=== PATIENT | male | born 1935 | race Caucasian/White ===

== ENCOUNTER 2019-06-17 15:40 | Observation (INO) | payer OTHER ==
[2019-06-17] MEDS ORDERED: Sodium Chloride 0.9% 1,000 ML IV ONE (15:43)
[2019-06-17 16:47] LABS: BLOOD UREA NITROGEN,BUN 29 mg/dL (7.0-18.0); CARBON DIOXIDE,CO2 28.9 mmol/L (21.0-32.0); CHLORIDE,CL 101 mmol/L (98-107); GLUCOSE RANDOM 153 mg/dL (74-106); POTASSIUM,K 4.3 mmol/L (3.5-5.1); SODIUM,NA 138 mmol/L (136-148)
--- NOTE | 2019-06-17 17:20 | EDM.PDOC ---
ED HPI GENERAL MEDICAL PROBLEM - General Chief Complaint: Gastrointestinal Problem Stated Complaint: SPOKE TO NURSE Time Seen by Provider: 06/17/19 15:44 Source of Information: Reports: Patient History Limitations: Reports: No Limitations - History of Present Illness INITIAL COMMENTS - FREE TEXT/NARRATIVE: HISTORY AND PHYSICAL: History of present illness: Patient is an 84-year-old male who presents to the emergency room with complaints of diarrhea x 1 month and episodic syncopal events. Patient reports over the past 1 month he has had diarrhea that is pretty constant. He describes this as typically his first stool will be hard and then the remaining bowel movements the rest of the day are soft which he is stating it is "diarrhea ". Concerned as sometimes his stool color is yellow. He also states he had a few previous episodes of syncope. Last syncopal event was on 06/15/2019, this was unwitnessed. He states he just remembers waking up on the ground and the dog laying right by his face. He does have an old healing bruise to his midsternal area. He does not recall any symptoms leading up to these syncopal events. 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 He sees Dr. Reddy at [facility] in [place]. Patient denies any fever, chills, headache, change in vision, syncope or near syncope. Denies any chest pain, back pain, shortness of breath or cough. Denies any abdominal pain, nausea, vomiting, diarrhea, constipation or dysuria. Has not noted any blood in urine or stool. Patient has been eating and drinking appropriately. Review of systems: As per history of present illness and below otherwise all systems reviewed and negative. Past medical history: As per history of present illness and as reviewed below otherwise noncontributory. Surgical history: As per history of present illness and as reviewed below otherwise noncontributory. Social history: See social history for further information Family history: As per history of present illness and as reviewed below otherwise noncontributory. Physical exam: General: Well-developed and well-nourished 84-year-old male. Alert and oriented. Nontoxic-appearing and in no acute distress. HEENT: Atraumatic, normocephalic, pupils equal and reactive bilaterally, negative for conjunctival pallor or scleral icterus, mucous membranes moist, TMs normal bilaterally, throat clear, neck supple, nontender, trachea midline. No drooling or trismus noted. No meningeal signs. No hot potato voice noted. Lungs: Clear to auscultation, breath sounds equal bilaterally, midsternum chest tender. Heart: S1S2, regular rate and rhythm without overt murmur Abdomen: Soft, nondistended, nontender. Negative for masses or hepatosplenomegaly. Negative for costovertebral tenderness. Pelvis: Stable nontender. Skin: Healing bruising noted to midsternum. Otherwise skin is intact, warm, dry. No lesions or rashes noted. Extremities: Atraumatic, moves all extremities per self without difficulty or deficits, negative for cords or calf pain. Neurovascular unremarkable. Neuro: Awake, alert, oriented. Cranial nerves II through XII unremarkable. Cerebellum unremarkable. Motor and sensory unremarkable throughout. Exam nonfocal. Notes: Patient did have a drop in his orthostatic vital signs although he did feel light headed and near syncope. Patient's chest x-ray shows a left perihilar subtle opacity of the left upper lobe which could represent a pneumonia. CT of the abdomen and pelvis did note that there are some opacities at the 2 both lung bases. Otherwise the CT shows no definite source for diarrhea in the abdomen or pelvis. Lab work is unremarkable. EKG shows no acute findings. I did offer the patient admission as he was not able to give us a stool sample and he did have a change in his orthostatic vital signs with recent syncope. Dr Encinas was consulted on this case, agreeable to keeping him for observation admission with telemetry Diagnostics: CBC, CMP, troponin, EKG, CT abdomen and pelvis, CT, chest x-ray, orthostatic vital signs, stool studies Therapeutics: IV fluid Impression: JHON Pneumonia Diarrhea Syncope Plan: Observation admission to med/surg with Telemetry Definitive disposition and diagnosis as appropriate pending reevaluation and review of above. Duration: Week(s): - Related Data Allergies Allergy/AdvReac Type Severity Reaction Status Date / Time mercury (elemental) Allergy Stomach Verified 06/17/19 16:05 Upset Penicillins Allergy Rash Verified 06/17/19 16:05 Home Meds: Home Meds Acetaminophen [Tylenol Arthritis] 06/17/19 [History] Aspirin [Halfprin] 06/17/19 [History] Cholecalciferol (Vitamin D3) [Thera-D] 06/17/19 [History] Clopidogrel [Plavix] 06/17/19 [History] Cyanocobalamin (Vitamin B-12) [B-12] 06/17/19 [History] Etanercept [Enbrel] 06/17/19 [History] Folic Acid 06/17/19 [History] Insulin Aspart [NovoLOG] 06/17/19 [History] Isosorbide Mononitrate 06/17/19 [History] Methotrexate 06/17/19 [History] Metoprolol Tartrate 06/17/19 [History] Multivitamin [Multi-Day Vitamins] 06/17/19 [History] Sertraline [Zoloft] 06/17/19 [History] atorvaSTATin [Lipitor] 06/17/19 [History] bisacodyL [Dulcolax] 06/17/19 [History] Past Medical History Cardiovascular History: Reports: High Cholesterol, Hypertension, [place], Stents Musculoskeletal History: Reports: Arthritis, Osteoarthritis Psychiatric History: Reports: Depression Endocrine/Metabolic History: Reports: Diabetes, Type I Social & Family History - Family History Family Medical History: Noncontributory - Tobacco Use Smoking Status *Q: Never Smoker - Recreational Drug Use Recreational Drug Use: No ED ROS GENERAL - Review of Systems Review Of Systems: Comprehensive ROS is negative, except as noted in HPI. ED EXAM, GI/ABD - Physical Exam Exam: See Below (See dictation) Course - Vital Signs Last Recorded V/S: Last Vital Signs Temp 97.3 F 06/17/19 18:45 Pulse 70 06/17/19 18:45 Resp 16 06/17/19 16:05 BP 127/70 06/17/19 18:45 Pulse Ox 97 06/17/19 18:45 Orthostatic Blood Pressure [ 158/76 Standing] Orthostatic Blood Pressure [ 178/79 Sitting] Orthostatic Blood Pressure [ 192/84 Supine] - Orders/Labs/Meds Orders: Active Orders 24 hr Category Date Time Status EKG Documentation Completion [RC] STAT Care 06/17/19 16:08 Active Orthostatic Vital Signs [RC] ASDIRECTED Care 06/17/19 16:08 Active C DIFFICILE AG/TOXIN W/REFLEX [RM] Stat Lab 06/17/19 15:43 Ordered CULTURE STOOL + CAMPY+SHIGATOX [RM] Stat Lab 06/17/19 15:43 Ordered OVA & PARASITES BY IMMUNOASSAY [MREF] Stat Lab 06/17/19 15:43 Ordered Sodium Chloride 0.9% [Normal Saline] 1,000 ml Med 06/17/19 15:43 Active IV STAT Medication Orders Sodium Chloride (Normal Saline) 1,000 mls @ 125 mls/hr IV STAT ONE Stop: 06/17/19 23:42 Last Admin: 06/17/19 17:05 Dose: 125 mls/hr Labs: Laboratory Tests 06/17/19 06/17/19 06/17/19 Range/Units 15:59 15:59 15:59 WBC 6.24 (4.0-11.0) K/uL RBC 4.38 L (4.50-5.90) M/uL Hgb 13.9 (13.0-17.0) g/dL Hct 41.4 (38.0-50.0) % MCV 94.5 (80.0-98.0) fL MCH 31.7 (27.0-32.0) pg MCHC 33.6 (31.0-37.0) g/dL RDW Std Deviation 47.4 (28.0-62.0) fl RDW Coeff of [place] 14 (11.0-15.0) % Plt Count 121 L (150-400) K/uL MPV 10.50 (7.40-12.00) fL Neut % (Auto) 70.6 (48.0-80.0) % Lymph % (Auto) 16.7 (16.0-40.0) % [place] % (Auto) 11.4 (0.0-15.0) % Eos % (Auto) 1.1 (0.0-7.0) % Baso % (Auto) 0.2 (0.0-1.5) % Neut # (Auto) 4.4 (1.4-5.7) K/uL Lymph # (Auto) 1.0 (0.6-2.4) K/uL [place] # (Auto) 0.7 (0.0-0.8) K/uL Eos # (Auto) 0.1 (0.0-0.7) K/uL Baso # (Auto) 0.0 (0.0-0.1) K/uL Nucleated RBC % 0.0 /100WBC Nucleated RBCs # 0 K/uL Sodium 138 (136-148) mmol/L Potassium 4.3 (3.5-5.1) mmol/L Chloride 101 (98-107) mmol/L Carbon Dioxide 28.9 (21.0-32.0) mmol/L BUN 29 H (7.0-18.0) mg/dL Creatinine 1.1 (0.8-1.3) mg/dL Est Cr Clr Drug Dosing TNP Estimated GFR (MDRD) > 60.0 ml/min Glucose 153 H (74-106) mg/dL Calcium 9.8 (8.5-10.1) mg/dL Total Bilirubin 0.4 (0.2-1.0) mg/dL AST 30 (15-37) IU/L ALT 54 (14-63) IU/L Alkaline Phosphatase 131 H (46-116) U/L Troponin I < 0.050 (0.000-0.056) ng/mL Total Protein 7.4 (6.4-8.2) g/dL Albumin 3.7 (3.4-5.0) g/dL Globulin 3.7 (2.6-4.0) g/dL Albumin/Globulin Ratio 1.0 (0.9-1.6) Urine Color Urine Appearance Urine pH (5.0-8.0) Ur Specific [place] (1.001-1.035) Urine Protein (NEGATIVE) mg/dL Urine Glucose (UA) (NEGATIVE) mg/dL Urine Ketones (NEGATIVE) mg/dL Urine Occult Blood (NEGATIVE) Urine Nitrite (NEGATIVE) Urine Bilirubin (NEGATIVE) Urine Urobilinogen (<2.0) EU/dL Ur Leukocyte Esterase (NEGATIVE) 06/17/19 Range/Units 18:36 WBC (4.0-11.0) K/uL RBC (4.50-5.90) M/uL Hgb (13.0-17.0) g/dL Hct (38.0-50.0) % MCV (80.0-98.0) fL MCH (27.0-32.0) pg MCHC (31.0-37.0) g/dL RDW Std Deviation (28.0-62.0) fl RDW Coeff of [place] (11.0-15.0) % Plt Count (150-400) K/uL MPV (7.40-12.00) fL Neut % (Auto) (48.0-80.0) % Lymph % (Auto) (16.0-40.0) % [place] % (Auto) (0.0-15.0) % Eos % (Auto) (0.0-7.0) % Baso % (Auto) (0.0-1.5) % Neut # (Auto) (1.4-5.7) K/uL Lymph # (Auto) (0.6-2.4) K/uL [place] # (Auto) (0.0-0.8) K/uL Eos # (Auto) (0.0-0.7) K/uL Baso # (Auto) (0.0-0.1) K/uL Nucleated RBC % /100WBC Nucleated RBCs # K/uL Sodium (136-148) mmol/L Potassium (3.5-5.1) mmol/L Chloride (98-107) mmol/L Carbon Dioxide (21.0-32.0) mmol/L BUN (7.0-18.0) mg/dL Creatinine (0.8-1.3) mg/dL Est Cr Clr Drug Dosing Estimated GFR (MDRD) ml/min Glucose (74-106) mg/dL Calcium (8.5-10.1) mg/dL Total Bilirubin (0.2-1.0) mg/dL AST (15-37) IU/L ALT (14-63) IU/L Alkaline Phosphatase (46-116) U/L Troponin I (0.000-0.056) ng/mL Total Protein (6.4-8.2) g/dL Albumin (3.4-5.0) g/dL Globulin (2.6-4.0) g/dL Albumin/Globulin Ratio (0.9-1.6) Urine Color YELLOW Urine Appearance CLEAR Urine pH 5.5 (5.0-8.0) Ur Specific [place] <= 1.005 (1.001-1.035) Urine Protein NEGATIVE (NEGATIVE) mg/dL Urine Glucose (UA) NEGATIVE (NEGATIVE) mg/dL Urine Ketones NEGATIVE (NEGATIVE) mg/dL Urine Occult Blood NEGATIVE (NEGATIVE) Urine Nitrite NEGATIVE (NEGATIVE) Urine Bilirubin NEGATIVE (NEGATIVE) Urine Urobilinogen 0.2 (<2.0) EU/dL Ur Leukocyte Esterase NEGATIVE (NEGATIVE) Meds: Medications Generic Name Dose Route Start Last Admin Trade Name Freq PRN Reason Stop Dose Admin Sodium Chloride 1,000 mls @ 125 mls/hr 06/17/19 15:43 06/17/19 17:05 Normal Saline IV 06/17/19 23:42 125 mls/hr STAT ONE Administration Discontinued Medications Generic Name Dose Route Start Last Admin Trade Name Freq PRN Reason Stop Dose Admin Iopamidol 100 ml 06/17/19 17:47 06/17/19 17:48 Isovue Multipack-370 (76%) IVPUSH 06/17/19 17:48 100 ml ONETIME ONE Administration Departure - Departure Time of Disposition: 19:07 Disposition: Refer to Observation Clinical Impression: Diarrhea Qualifiers: Diarrhea type: unspecified type Qualified Code(s): R19.7 - Diarrhea, unspecified Left upper lobe pneumonia Qualifiers: Pneumonia type: due to unspecified organism Qualified Code(s): J18.9 - Pneumonia, unspecified organism Syncope Qualifiers: Syncope type: unspecified Qualified Code(s): R55 - Syncope and collapse - Discharge Information Referrals: [facility] [Primary Care Provider] - Forms: ED Department Discharge Sepsis Event Note - Evaluation Sepsis Screening Result: No Definite Risk - Focused Exam Vital Signs: Vital Signs Temp Pulse Resp BP Pulse Ox 06/17/19 18:45 97.3 F 70 127/70 97 06/17/19 16:05 95.5 F 71 16 184/80 H 95 Date Exam was Performed: 06/17/19 Time Exam was Performed: 19:02 - My Orders Last 24 Hours: My Active Orders 06/17/19 15:43 C DIFFICILE AG/TOXIN W/REFLEX [RM] Stat CULTURE STOOL + CAMPY+SHIGATOX [RM] Stat OVA & PARASITES BY IMMUNOASSAY [MREF] Stat Sodium Chloride 0.9% [Normal Saline] 1,000 ml IV STAT 06/17/19 16:08 EKG Documentation Completion [RC] STAT Orthostatic Vital Signs [RC] ASDIRECTED - Assessment/Plan Last 24 Hours: My Active Orders 06/17/19 15:43 C DIFFICILE AG/TOXIN W/REFLEX [RM] Stat CULTURE STOOL + CAMPY+SHIGATOX [RM] Stat OVA & PARASITES BY IMMUNOASSAY [MREF] Stat Sodium Chloride 0.9% [Normal Saline] 1,000 ml IV STAT 06/17/19 16:08 EKG Documentation Completion [RC] STAT Orthostatic Vital Signs [RC] ASDIRECTED
[2019-06-17] MEDS ORDERED: Iopamidol 755 MG/ML 200 ML Multipack Bottle IVPUSH ONE (17:47)
--- NOTE | 2019-06-17 18:43 | CR ---
INDICATION: Syncope. TECHNIQUE: One view. FINDINGS: Patchy indistinct reticular nodular opacity in the perihilar left mid lung. No other lung parenchymal abnormality. Pulmonary vascularity and cardiomediastinal silhouette are normal. IMPRESSION : Left perihilar subtle opacity left upper lobe may be pneumonia or scar. Correlation to prior imaging recommended. If there is acute clinical concern, CT recommended for further characterization. Dictated by Mahad Haque MD @ Jun 17 2019 6:41PM Signed by Dr. Mahad Haque @ Jun 17 2019 6:41PM
--- NOTE | 2019-06-17 18:48 | CT ---
INDICATION: Intermittent diarrhea for 1 month. COMPARISON: None. TECHNIQUE: 100 mL Isovue-370 IV contrast. FINDINGS: Multiple peripheral ground-glass and reticular interstitial wedge shaped densities in both lungs all lobes visualized. CT of the chest recommended for characterization. Coronary atherosclerosis. Liver, spleen, adrenals and pancreas are normal. Small benign cyst lateral midpole left kidney. Minor perinephric stranding. Aorta is non aneurysmal with prominent atherosclerotic vascular calcification. Large and small bowel show no dilatation or inflammation. 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 No fracture or bone lesion. Mild osteoarthritis of both hips. IMPRESSION: 1. Age indeterminate but potentially chronic multifocal interstitial and airspace opacities in both lung bases. 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 CT of the chest with contrast recommended for further characterization. 2. No definite source for diarrhea identified in the abdomen or pelvis however occasionally eosinophilic pneumonia can be associated with the eosinophilic pneumonia. Please note that all CT scans at this facility use dose modulation, iterative reconstruction, and/or weight-based dosing when appropriate to reduce radiation dose to as low as reasonably achievable. Dictated by Mahad Haque MD @ Jun 17 2019 6:41PM Signed by Dr. Mahad Haque @ Jun 17 2019 6:45PM
--- NOTE | 2019-06-17 18:48 | CT ---
INDICATION: Syncope. TECHNIQUE: CT Head without contrast. COMPARISON: None. FINDINGS: CSF spaces: Within normal limits for age. Brain parenchyma: The llamas-white differentiation is normal. No sign of mass, hemorrhage, or midline shift. Skull base and calvarium: The visualized paranasal sinuses and mastoid air cells are clear. The visualized orbits are grossly unremarkable. No skull fractures. . IMPRESSION: Unremarkable noncontrast head CT. Please note that all CT scans at this facility use dose modulation, iterative reconstruction, and/or weight-based dosing when appropriate to reduce radiation dose to as low as reasonably achievable. Dictated by Mahad Haque MD @ Jun 17 2019 6:46PM Signed by Dr. Mahad Haque @ Jun 17 2019 6:46PM
[2019-06-17] MEDS ORDERED: Methotrexate 2.5 MG Tab PO SCH (23:15)
[2019-06-17] MEDS ORDERED: Levofloxacin/Dextrose 5%-Water 750 MG in Premix Bag 1 BAG IV SCH (23:15)
--- NOTE | 2019-06-17 23:38 | PCM.HP.2 ---
H&P History of Present Illness - General Date of Service: 06/17/19 Admit Problem/Dx: Admission Diagnosis/Problem Admission Diagnosis/Problem Syncope - History of Present Illness Initial Comments - Free Text/Narative: 84 yo male with pmh of CAD, psoriasis and diabetes who [facility]. Patient reports increasing shortness of breath over the past month. He used to be able to walk 2 miles but now only about 200 feet. PAtient reports passing out multiple times this month causing bruises on his chest. PAtient admits to one hard dark bowel movement followed by multiple loose stools. Patient reports a distant history of valley fever when he lived in [place]. - Related Data Allergies/Adverse Reactions: Allergies Allergy/AdvReac Type Severity Reaction Status Date / Time mercury (elemental) Allergy Stomach Verified 06/17/19 21:23 Upset Penicillins Allergy Rash Verified 06/17/19 21:23 Home Medications: Home Meds Acetaminophen [Tylenol Arthritis] 3 tab PO BID PRN 06/17/19 [History] Aspirin [Halfprin] 81 mg PO BEDTIME 06/17/19 [History] Cholecalciferol (Vitamin D3) [Thera-D] 1 tab PO DAILY 06/17/19 [History] Clopidogrel [Plavix] 75 mg PO DAILY 06/17/19 [History] Cyanocobalamin (Vitamin B-12) [B-12] 1 tab PO DAILY 06/17/19 [History] Etanercept [Enbrel] 50 mg IM WEEKLY 06/17/19 [History] Folic Acid 1 mg PO DAILY 06/17/19 [History] Insulin Aspart [NovoLOG] 1.4 units SQ ASDIRECTED 06/17/19 [History] Isosorbide Mononitrate 10 mg PO BEDTIME 06/17/19 [History] Methotrexate 6 tab PO WEEKLY 06/17/19 [History] Metoprolol Tartrate 25 mg PO BEDTIME 06/17/19 [History] Sertraline [Zoloft] 200 mg PO DAILY 06/17/19 [History] atorvaSTATin [Lipitor] 40 mg PO BEDTIME 06/17/19 [History] bisacodyL [Dulcolax] 1 tab PO DAILY 06/17/19 [History] Past Medical History HEENT History: Reports: Hard of Hearing, Macular Degeneration, Other (See Below) Other HEENT History: Deaf Left ear Cardiovascular History: Reports: High Cholesterol, Hypertension, PR, Stents Genitourinary History: Reports: Diabetic Nephropathy, Other (See Below) Other Genitourinary History: Neuropathy fingers and feet Musculoskeletal History: Reports: Arthritis, Osteoarthritis, Other (See Below) Other Musculoskeletal History: Psoriatic arthritis Neurological History: Reports: Headaches, Chronic, Neuropathy, Diabetic Psychiatric History: Reports: Depression, PTSD Endocrine/Metabolic History: Reports: Diabetes, Type I Insulin Pump Model and Wreath [employer] Garland Maker: Massive Analytic Type of Insulin Used in Pump: Lispro When was Your Last Insulin Site/Set Changed: 3 days Do You Have Enough Pump Supplies for Your Hospital Stay: Yes Who Manages Your Pump: Patient (Self) Basal Rate (Units/hr): 1.4 units/hr (total 33.6/day) Units of Insulin Per Gram of Carbohydrates:: 11 Amount of Insulin Given with Breakfast (Units): 5 Do You Give Correction Boluses or Sliding Scale: No Patient Able to Demonstrate: Current Pump Settings (Basal Rates), Describe How to Change Infusion Set & Insertion Set, How to Get to Bolus Settings & Administer if Needed, Suspend Pump Dermatologic History: Reports: Psoriasis - Infectious Disease History Infectious Disease History: 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 Has been tested 3 times and is negative - Past Surgical History HEENT Surgical History: Reports: Cataract Surgery, Other (See Below) Other HEENT Surgeries/Procedures: Bilateral cataract surgery Cardiovascular Surgical History: Reports: Coronary Artery Stent Male Surgical History: Reports: None Neurological Surgical History: Reports: Lumbar Spine Musculoskeletal Surgical History: Reports: Other (See Below) Other Musculoskeletal Surgeries/Procedures:: lower lumbar surgery Social & Family History - Family History Family Medical History: Noncontributory - Tobacco Use Smoking Status *Q: Former Smoker Used Tobacco, but Quit: Yes Month/Year Tobacco Last Used: 45 years ago Second Hand Smoke Exposure: No - Caffeine Use Caffeine Use: Reports: Coffee, Tea Other Caffeine Use: 2-4 cups per day - Recreational Drug Use Recreational Drug Use: No H&P Review of Systems - Review of Systems: Review Of Systems: Comprehensive ROS is negative, except as noted in HPI. Exam - Vital Signs Vital Signs: Last Vital Signs Temp 36.7 C 06/17/19 20:42 Pulse 67 06/17/19 20:42 Resp 20 12/27/19 20:42 BP 156/69 H 06/17/19 21:00 Pulse Ox 98 06/17/19 20:42 Orthostatic Blood Pressure [ 158/76 Standing] Orthostatic Blood Pressure [ 178/79 Sitting] Orthostatic Blood Pressure [ 192/84 Supine] Weight: 89.993 kg - Exam General: Alert, Oriented HEENT: Mucosa Moist & [place] Neck: Supple, Trachea Midline Lungs: Clear to Auscultation, Normal Respiratory Effort Cardiovascular: Regular Rate, Regular Rhythm GI/Abdominal Exam: Soft, Non-Tender Extremities: Non-Tender, No Pedal Edema Skin: Warm, Dry, Intact - Patient Data Lab Results Last 24 hrs: Laboratory Results - last 24 hr 06/17/19 06/17/19 06/17/19 Range/Units 15:59 15:59 15:59 WBC 6.24 (4.0-11.0) K/uL RBC 4.38 L (4.50-5.90) M/uL Hgb 13.9 (13.0-17.0) g/dL Hct 41.4 (38.0-50.0) % MCV 94.5 (80.0-98.0) fL MCH 31.7 (27.0-32.0) pg MCHC 33.6 (31.0-37.0) g/dL RDW Std Deviation 47.4 (28.0-62.0) fl RDW Coeff of [place] 14 (11.0-15.0) % Plt Count 121 L (150-400) K/uL MPV 10.50 (7.40-12.00) fL Neut % (Auto) 70.6 (48.0-80.0) % Lymph % (Auto) 16.7 (16.0-40.0) % [place] % (Auto) 11.4 (0.0-15.0) % Eos % (Auto) 1.1 (0.0-7.0) % Baso % (Auto) 0.2 (0.0-1.5) % Neut # (Auto) 4.4 (1.4-5.7) K/uL Lymph # (Auto) 1.0 (0.6-2.4) K/uL [place] # (Auto) 0.7 (0.0-0.8) K/uL Eos # (Auto) 0.1 (0.0-0.7) K/uL Baso # (Auto) 0.0 (0.0-0.1) K/uL Nucleated RBC % 0.0 /100WBC Nucleated RBCs # 0 K/uL Sodium 138 (136-148) mmol/L Potassium 4.3 (3.5-5.1) mmol/L Chloride 101 (98-107) mmol/L Carbon Dioxide 28.9 (21.0-32.0) mmol/L BUN 29 H (7.0-18.0) mg/dL Creatinine 1.1 (0.8-1.3) mg/dL Est Cr Clr Drug Dosing TNP Estimated GFR (MDRD) > 60.0 ml/min Glucose 153 H (74-106) mg/dL POC Glucose (60-110) mg/dL Calcium 9.8 (8.5-10.1) mg/dL Total Bilirubin 0.4 (0.2-1.0) mg/dL AST 30 (15-37) IU/L ALT 54 (14-63) IU/L Alkaline Phosphatase 131 H (46-116) U/L Troponin I < 0.050 (0.000-0.056) ng/mL Total Protein 7.4 (6.4-8.2) g/dL Albumin 3.7 (3.4-5.0) g/dL Globulin 3.7 (2.6-4.0) g/dL Albumin/Globulin Ratio 1.0 (0.9-1.6) Urine Color Urine Appearance Urine pH (5.0-8.0) Ur Specific [place] (1.001-1.035) Urine Protein (NEGATIVE) mg/dL Urine Glucose (UA) (NEGATIVE) mg/dL Urine Ketones (NEGATIVE) mg/dL Urine Occult Blood (NEGATIVE) Urine Nitrite (NEGATIVE) Urine Bilirubin (NEGATIVE) Urine Urobilinogen (<2.0) EU/dL Ur Leukocyte Esterase (NEGATIVE) 06/17/19 06/17/19 Range/Units 18:36 21:20 WBC (4.0-11.0) K/uL RBC (4.50-5.90) M/uL Hgb (13.0-17.0) g/dL Hct (38.0-50.0) % MCV (80.0-98.0) fL MCH (27.0-32.0) pg MCHC (31.0-37.0) g/dL RDW Std Deviation (28.0-62.0) fl RDW Coeff of [place] (11.0-15.0) % Plt Count (150-400) K/uL MPV (7.40-12.00) fL Neut % (Auto) (48.0-80.0) % Lymph % (Auto) (16.0-40.0) % [place] % (Auto) (0.0-15.0) % Eos % (Auto) (0.0-7.0) % Baso % (Auto) (0.0-1.5) % Neut # (Auto) (1.4-5.7) K/uL Lymph # (Auto) (0.6-2.4) K/uL [place] # (Auto) (0.0-0.8) K/uL Eos # (Auto) (0.0-0.7) K/uL Baso # (Auto) (0.0-0.1) K/uL Nucleated RBC % /100WBC Nucleated RBCs # K/uL Sodium (136-148) mmol/L Potassium (3.5-5.1) mmol/L Chloride (98-107) mmol/L Carbon Dioxide (21.0-32.0) mmol/L BUN (7.0-18.0) mg/dL Creatinine (0.8-1.3) mg/dL Est Cr Clr Drug Dosing Estimated GFR (MDRD) ml/min Glucose (74-106) mg/dL POC Glucose 94 (60-110) mg/dL Calcium (8.5-10.1) mg/dL Total Bilirubin (0.2-1.0) mg/dL AST (15-37) IU/L ALT (14-63) IU/L Alkaline Phosphatase (46-116) U/L Troponin I (0.000-0.056) ng/mL Total Protein (6.4-8.2) g/dL Albumin (3.4-5.0) g/dL Globulin (2.6-4.0) g/dL Albumin/Globulin Ratio (0.9-1.6) Urine Color YELLOW Urine Appearance CLEAR Urine pH 5.5 (5.0-8.0) Ur Specific [place] <= 1.005 (1.001-1.035) Urine Protein NEGATIVE (NEGATIVE) mg/dL Urine Glucose (UA) NEGATIVE (NEGATIVE) mg/dL Urine Ketones NEGATIVE (NEGATIVE) mg/dL Urine Occult Blood NEGATIVE (NEGATIVE) Urine Nitrite NEGATIVE (NEGATIVE) Urine Bilirubin NEGATIVE (NEGATIVE) Urine Urobilinogen 0.2 (<2.0) EU/dL Ur Leukocyte Esterase NEGATIVE (NEGATIVE) Result Diagrams: 06/17/19 15:59 06/17/19 15:59 Sepsis Event Note - Evaluation Sepsis Screening Result: No Definite Risk - Focused Exam Vital Signs: Vital Signs Temp Pulse Resp BP Pulse Ox 06/17/19 21:00 156/69 H 06/17/19 20:42 36.7 C 67 20 200/88 H 98 06/17/19 20:13 36.1 C 69 20 170/84 H 94 L 06/17/19 18:45 36.3 C 70 127/70 97 06/17/19 16:05 35.3 C 71 16 184/80 H 95 Date Exam was Performed: 06/17/19 Time Exam was Performed: 23:28 Problem List Initiated/Reviewed/Updated: Yes Orders Last 24hrs: Active Orders 24 hr Category Date Time Status Admission Status [Patient Status] [ADT] Stat ADT 06/17/19 19:10 Active Antiembolic Devices [RC] PER UNIT ROUTINE Care 06/17/19 23:23 Ordered Hemoccult [Fecal Occult Blood Collection] [RC] Care 06/17/19 23:13 Ordered ASDIRECTED Oxygen Therapy [RC] PRN Care 06/17/19 23:22 Ordered Telemetry Monitoring [Cardiac Monitoring] [RC] . Care 06/17/19 20:[address] [RC] ASDIRECTED Care 06/17/19 23:22 Ordered VTE/DVT Education [RC] PER UNIT ROUTINE Care 06/17/19 23:22 Ordered Vital Signs [RC] Q4H Care 06/17/19 23:22 Ordered [place] [employer] Diet [DIET] Diet 06/17/19 Breakfast Ordered Chest wo Cont [CT] Routine Exams 06/17/19 23:21 Ordered BASIC METABOLIC PANEL,BMP [CHEM] AM Lab 06/18/19 05:11 Ordered C DIFFICILE AG/TOXIN W/REFLEX [RM] Stat Lab 06/17/19 19:06 Received CBC WITH AUTO DIFF [HEME] AM Lab 06/18/19 05:11 Ordered Hemoccult [OCCULT BLOOD DIAGNOSTIC] [OP] Routine Lab 06/17/19 23:13 Ordered MISC TEST Stat Lab 06/17/19 19:05 Received OVA & PARASITES BY IMMUNOASSAY [MREF] Stat Lab 06/17/19 19:10 Ordered Aspirin [Halfprin] Med 06/18/19 21:00 Ordered 81 mg PO BEDTIME Clopidogrel [Plavix] Med 06/18/19 09:00 Ordered 75 mg PO DAILY Insulin Aspart [NovoLOG] Med 06/17/19 23:15 Ordered 1.4 unit SUBCUT ASDIRECTED Isosorbide Mononitrate Med 06/18/19 21:00 Ordered 10 mg PO BEDTIME Levofloxacin/Dextrose 5%-Water [Levaquin in D5W 750 MG/ Med 06/17/19 23:15 Ordered 150 ML] 750 mg Premix Bag 1 bag IV Q24H Methotrexate Med 06/17/19 23:15 Ordered 15 mg PO WEEKLY Metoprolol Tartrate [Lopressor] Med 06/18/19 21:00 Ordered 25 mg PO BEDTIME Pantoprazole [ProTONIX IV] 40 mg Med 06/17/19 23:15 Ordered Sodium Chloride 0.9% [Normal Saline] 10 ml IV Q12H Sertraline [Zoloft] Med 06/18/19 09:00 Ordered 200 mg PO DAILY Sodium Chloride 0.9% [Normal Saline] 1,000 ml Med 06/17/19 15:43 Active IV STAT atorvaSTATin [Lipitor] Med 06/18/19 21:00 Ordered 40 mg PO BEDTIME Sequential Compression Device [OM.PC] Per Unit Routine Oth 06/17/19 23:23 Ordered Resuscitation Status Routine Resus Stat 06/17/19 23:22 Ordered Medication Orders Aspirin (Halfprin) 81 mg PO BEDTIME JAMIR Atorvastatin Calcium (Lipitor) 40 mg PO BEDTIME JAMIR Clopidogrel Bisulfate (Plavix) 75 mg PO DAILY JAMIR Sodium Chloride (Normal Saline) 1,000 mls @ 125 mls/hr IV STAT ONE Stop: 06/17/19 23:42 Last Admin: 06/17/19 17:05 Dose: 125 mls/hr Levofloxacin/Dextrose 750 mg/ (Premix) 150 mls @ 100 mls/hr IV Q24H JAMIR Pantoprazole Sodium 40 mg/ (Sodium Chloride) 10 mls @ 300 mls/hr IV Q12H ON LICENSE OF [facility] Insulin Aspart (Novolog) 1.4 unit SUBCUT ASDIRECTED ON LICENSE OF [facility] Methotrexate (Methotrexate) 15 mg PO WEEKLY ON LICENSE OF [facility] Metoprolol Tartrate (Lopressor) 25 mg PO BEDTIME ON LICENSE OF [facility] Non-Formulary Medication (Isosorbide Mononitrate) 10 mg PO BEDTIME JAMIR Sertraline HCl (Zoloft) 200 mg PO DAILY ON LICENSE OF [facility] Assessment/Plan Comment:: 84 yo male admitted for syncope. Syncope: Will monitor overnight on telemetry. Patient does have follow up with Dr. Reddy on Thursday regarding these symptoms Diarrhea: stool samples ordered, will hemcult stool, Giving IV fluids Pneumonia: Infection less likely but will treat with Levaquin. Will get CT chest. DM: will resume home insulin pump.
[2019-06-18] MEDS ORDERED: atorvaSTATin 40 MG Tab PO ONE
[2019-06-18] MEDS ORDERED: Aspirin 81 MG Tab.EC PO ONE
[2019-06-18] MEDS: Pantoprazole 40 MG in Sodium Chloride 0.9% 10 ML IV SCH ×2 (00:05→12:15)
[2019-06-18 07:00] LABS: BLOOD UREA NITROGEN,BUN 22 mg/dL (7.0-18.0); CARBON DIOXIDE,CO2 26.5 mmol/L (21.0-32.0); CHLORIDE,CL 104 mmol/L (98-107); GLUCOSE RANDOM 124 mg/dL (74-106); POTASSIUM,K 4.4 mmol/L (3.5-5.1); SODIUM,NA 138 mmol/L (136-148)
[2019-06-18] MEDS ORDERED: Sertraline 100 MG Tab PO SCH (09:00)
[2019-06-18] MEDS ORDERED: Clopidogrel 75 MG Tab PO SCH (09:00)
--- NOTE | 2019-06-18 11:26 | CT ---
Clinical INDICATION: Shortness of breath. TECHNIQUE: Axial noncontrast CT cuts were performed from the thoracic inlet to the upper abdomen. COMPARISON: Chest radiograph 06/17/2019. Findings : There are quite extensive patchy ground-glass infiltrates within all lung lobes most prominent within the left upper lobe. These are not specific in appearance regarding etiology. There are a few mildly prominent lymph nodes within the prevascular fat adjacent to the aorta with the largest measuring 2.2 x 0.7 cm. There is no hilar or axillary lymphadenopathy. There are no pleural or pericardial fluid collections. There is vascular calcification within the left coronary artery. There is intravenous contrast within the lumen of the gallbladder that can be accounted for on the basis of the abdominal CT from 06/17/2019. The liver, spleen, pancreas, adrenals and right kidney appear normal. There is a small cortical cyst of the left kidney. IMPRESSION: 1. Nonspecific patchy ground-glass infiltrates within all lung lobes most prominent within the anterior segment of the left upper lobe. These are nonspecific in appearance regarding etiology. Community acquired pneumonia would be a possibility. Other considerations would include but not be limited to, a drug reaction or extrinsic allergic alveolitis. 2. Coronary arterial calcification. Please note that all CT scans at this facility use dose modulation, iterative reconstruction, and/or weight-based dosing when appropriate to reduce radiation dose to as low as reasonably achievable. Dictated by Karri Page MD @ Jun 18 2019 11:17AM Signed by Dr. Karri Page @ Jun 18 2019 11:24AM
--- NOTE | 2019-06-18 15:30 | PCM.DCSUM1 ---
Discharge Summary - Hospital Course HPI Initial Comments: Discharge summary Admission date 06/17/2019 Discharge date 06/18/2019 Admission diagnoses: Syncope exertional Dyspnea PMH: DM, CAD w/ stent placement. Consultations:None Procedures: Hospital course: Patient is a 84-year-old male with a past medical history of coronary artery disease, psoriasis, type 1 diabetes presented [facility]. Patient reports increasing shortness of breath these past 4 weeks; reports having been able to walk 2 miles but now can only walk 200 feet. Patient also concludes multiple episodes of passing out; multiple times causing falls with contusions to his anterior chest; when asked about any other changes states he has been having multiple loose stools but not consistently for the past 1 month. Currently denies any fevers chills body aches chest pain and or shortness of breath at rest. Chest x-ray showed some ground-glass opacities with repeat chest CT showing ground-glass opacities and infiltrate in all lung hill and coronary arterial calcifications. Was stable throughout his stay; given 1 dose of Levaquin however clinically not showing signs of desaturations or syncope of pneumonia. CT head was negative. Spoke to pulmonology in [place], [place]; recommended outpatient follow-up for pulmonary function testing and possible need for bronchoscopy. Advised to follow with Dr. Reddy as scheduled on Thursday. Patient agreed with plan. Patient states he feels strong and would like to go home. Due to history of Diarrhea stool sample was taken; patient was not having any diarrhea in inpatient setting however Hemoccult was negative. Discharge condition: Stable Disposition: Home - Discharge Data Discharge Date: 06/18/19 Discharge Disposition: Home, Self-Care 01 Condition: Fair - Referral to Home Health Primary Care Physician: [facility] - Discharge Plan Home Medications: Home Meds Acetaminophen [Tylenol Arthritis] 3 tab PO BID PRN 06/17/19 [History] Aspirin [Halfprin] 81 mg PO BEDTIME 06/17/19 [History] Cholecalciferol (Vitamin D3) [Thera-D] 1 tab PO DAILY 06/17/19 [History] Clopidogrel [Plavix] 75 mg PO DAILY 06/17/19 [History] Cyanocobalamin (Vitamin B-12) [B-12] 1 tab PO DAILY 06/17/19 [History] Etanercept [Enbrel] 50 mg IM WEEKLY 06/17/19 [History] Folic Acid 1 mg PO DAILY 06/17/19 [History] Insulin Aspart [NovoLOG] 1.4 units SQ ASDIRECTED 06/17/19 [History] Isosorbide Mononitrate 10 mg PO BEDTIME 06/17/19 [History] Methotrexate 6 tab PO WEEKLY 06/17/19 [History] Metoprolol Tartrate 25 mg PO BEDTIME 06/17/19 [History] Sertraline [Zoloft] 200 mg PO DAILY 06/17/19 [History] atorvaSTATin [Lipitor] 40 mg PO BEDTIME 06/17/19 [History] bisacodyL [Dulcolax] 1 tab PO DAILY 06/17/19 [History] Patient Handouts: Diarrhea, Adult, [id number], Syncope, [id number], Community-Acquired Pneumonia, Adult, [id number] [facility]: [facility] [Primary Care Provider] - - Discharge Summary/Plan Comment DC Time >30 min.: No - Patient Data Vitals - Most Recent: Last Vital Signs Temp 97.2 F 06/18/19 12:00 Pulse 70 06/18/19 12:00 Resp 18 06/18/19 12:00 BP 145/67 H 06/18/19 12:00 Pulse Ox 95 06/18/19 12:00 Orthostatic Blood Pressure [ 158/76 Standing] Orthostatic Blood Pressure [ 178/79 Sitting] Orthostatic Blood Pressure [ 192/84 Supine] Weight - Most Recent: 198 lb 6.4 oz I&O - Last 24 hours: Intake & Output 06/18/19 06/18/19 06/18/19 06:59 14:59 22:59 Intake Total 440 Output Total 675 Balance -235 Lab Results - Last 24 hrs: Laboratory Results - last 24 hr 06/17/19 06/17/19 06/17/19 Range/Units 15:59 15:59 15:59 WBC 6.24 (4.0-11.0) K/uL RBC 4.38 L (4.50-5.90) M/uL Hgb 13.9 (13.0-17.0) g/dL Hct 41.4 (38.0-50.0) % MCV 94.5 (80.0-98.0) fL MCH 31.7 (27.0-32.0) pg MCHC 33.6 (31.0-37.0) g/dL RDW Std Deviation 47.4 (28.0-62.0) fl RDW Coeff of [place] 14 (11.0-15.0) % Plt Count 121 L (150-400) K/uL MPV 10.50 (7.40-12.00) fL Neut % (Auto) 70.6 (48.0-80.0) % Lymph % (Auto) 16.7 (16.0-40.0) % [place] % (Auto) 11.4 (0.0-15.0) % Eos % (Auto) 1.1 (0.0-7.0) % Baso % (Auto) 0.2 (0.0-1.5) % Neut # (Auto) 4.4 (1.4-5.7) K/uL Lymph # (Auto) 1.0 (0.6-2.4) K/uL [place] # (Auto) 0.7 (0.0-0.8) K/uL Eos # (Auto) 0.1 (0.0-0.7) K/uL Baso # (Auto) 0.0 (0.0-0.1) K/uL Nucleated RBC % 0.0 /100WBC Nucleated RBCs # 0 K/uL Sodium 138 (136-148) mmol/L Potassium 4.3 (3.5-5.1) mmol/L Chloride 101 (98-107) mmol/L Carbon Dioxide 28.9 (21.0-32.0) mmol/L BUN 29 H (7.0-18.0) mg/dL Creatinine 1.1 (0.8-1.3) mg/dL Est Cr Clr Drug Dosing TNP Estimated GFR (MDRD) > 60.0 ml/min Glucose 153 H (74-106) mg/dL POC Glucose (60-110) mg/dL Calcium 9.8 (8.5-10.1) mg/dL Total Bilirubin 0.4 (0.2-1.0) mg/dL AST 30 (15-37) IU/L ALT 54 (14-63) IU/L Alkaline Phosphatase 131 H (46-116) U/L Troponin I < 0.050 (0.000-0.056) ng/mL Total Protein 7.4 (6.4-8.2) g/dL Albumin 3.7 (3.4-5.0) g/dL Globulin 3.7 (2.6-4.0) g/dL Albumin/Globulin Ratio 1.0 (0.9-1.6) Urine Color Urine Appearance Urine pH (5.0-8.0) Ur Specific [place] (1.001-1.035) Urine Protein (NEGATIVE) mg/dL Urine Glucose (UA) (NEGATIVE) mg/dL Urine Ketones (NEGATIVE) mg/dL Urine Occult Blood (NEGATIVE) Urine Nitrite (NEGATIVE) Urine Bilirubin (NEGATIVE) Urine Urobilinogen (<2.0) EU/dL Ur Leukocyte Esterase (NEGATIVE) 06/17/19 06/17/19 06/18/19 Range/Units 18:36 21:20 05:45 WBC 4.90 (4.0-11.0) K/uL RBC 3.98 L (4.50-5.90) M/uL Hgb 12.6 L (13.0-17.0) g/dL Hct 37.4 L (38.0-50.0) % MCV 94.0 (80.0-98.0) fL MCH 31.7 (27.0-32.0) pg MCHC 33.7 (31.0-37.0) g/dL RDW Std Deviation 46.9 (28.0-62.0) fl RDW Coeff of [place] 14 (11.0-15.0) % Plt Count 108 L (150-400) K/uL MPV 10.60 (7.40-12.00) fL Neut % (Auto) 60.7 (48.0-80.0) % Lymph % (Auto) 21.4 (16.0-40.0) % [place] % (Auto) 16.1 H (0.0-15.0) % Eos % (Auto) 1.6 (0.0-7.0) % Baso % (Auto) 0.2 (0.0-1.5) % Neut # (Auto) 3.0 (1.4-5.7) K/uL Lymph # (Auto) 1.1 (0.6-2.4) K/uL [place] # (Auto) 0.8 (0.0-0.8) K/uL Eos # (Auto) 0.1 (0.0-0.7) K/uL Baso # (Auto) 0.0 (0.0-0.1) K/uL Nucleated RBC % 0.0 /100WBC Nucleated RBCs # 0 K/uL Sodium (136-148) mmol/L Potassium (3.5-5.1) mmol/L Chloride (98-107) mmol/L Carbon Dioxide (21.0-32.0) mmol/L BUN (7.0-18.0) mg/dL Creatinine (0.8-1.3) mg/dL Est Cr Clr Drug Dosing Estimated GFR (MDRD) ml/min Glucose (74-106) mg/dL POC Glucose 94 (60-110) mg/dL Calcium (8.5-10.1) mg/dL Total Bilirubin (0.2-1.0) mg/dL AST (15-37) IU/L ALT (14-63) IU/L Alkaline Phosphatase (46-116) U/L Troponin I (0.000-0.056) ng/mL Total Protein (6.4-8.2) g/dL Albumin (3.4-5.0) g/dL Globulin (2.6-4.0) g/dL Albumin/Globulin Ratio (0.9-1.6) Urine Color YELLOW Urine Appearance CLEAR Urine pH 5.5 (5.0-8.0) Ur Specific [place] <= 1.005 (1.001-1.035) Urine Protein NEGATIVE (NEGATIVE) mg/dL Urine Glucose (UA) NEGATIVE (NEGATIVE) mg/dL Urine Ketones NEGATIVE (NEGATIVE) mg/dL Urine Occult Blood NEGATIVE (NEGATIVE) Urine Nitrite NEGATIVE (NEGATIVE) Urine Bilirubin NEGATIVE (NEGATIVE) Urine Urobilinogen 0.2 (<2.0) EU/dL Ur Leukocyte Esterase NEGATIVE (NEGATIVE) 06/18/19 06/18/19 06/18/19 Range/Units 05:45 06:44 12:09 WBC (4.0-11.0) K/uL RBC (4.50-5.90) M/uL Hgb (13.0-17.0) g/dL Hct (38.0-50.0) % MCV (80.0-98.0) fL MCH (27.0-32.0) pg MCHC (31.0-37.0) g/dL RDW Std Deviation (28.0-62.0) fl RDW Coeff of [place] (11.0-15.0) % Plt Count (150-400) K/uL MPV (7.40-12.00) fL Neut % (Auto) (48.0-80.0) % Lymph % (Auto) (16.0-40.0) % [place] % (Auto) (0.0-15.0) % Eos % (Auto) (0.0-7.0) % Baso % (Auto) (0.0-1.5) % Neut # (Auto) (1.4-5.7) K/uL Lymph # (Auto) (0.6-2.4) K/uL [place] # (Auto) (0.0-0.8) K/uL Eos # (Auto) (0.0-0.7) K/uL Baso # (Auto) (0.0-0.1) K/uL Nucleated RBC % /100WBC Nucleated RBCs # K/uL Sodium 138 (136-148) mmol/L Potassium 4.4 (3.5-5.1) mmol/L Chloride 104 (98-107) mmol/L Carbon Dioxide 26.5 (21.0-32.0) mmol/L BUN 22 H (7.0-18.0) mg/dL Creatinine 1.0 (0.8-1.3) mg/dL Est Cr Clr Drug Dosing 51.39 Estimated GFR (MDRD) > 60.0 ml/min Glucose 124 H (74-106) mg/dL POC Glucose 130 H 126 H (60-110) mg/dL Calcium 9.0 (8.5-10.1) mg/dL Total Bilirubin (0.2-1.0) mg/dL AST (15-37) IU/L ALT (14-63) IU/L Alkaline Phosphatase (46-116) U/L Troponin I (0.000-0.056) ng/mL Total Protein (6.4-8.2) g/dL Albumin (3.4-5.0) g/dL Globulin (2.6-4.0) g/dL Albumin/Globulin Ratio (0.9-1.6) Urine Color Urine Appearance Urine pH (5.0-8.0) Ur Specific [place] (1.001-1.035) Urine Protein (NEGATIVE) mg/dL Urine Glucose (UA) (NEGATIVE) mg/dL Urine Ketones (NEGATIVE) mg/dL Urine Occult Blood (NEGATIVE) Urine Nitrite (NEGATIVE) Urine Bilirubin (NEGATIVE) Urine Urobilinogen (<2.0) EU/dL Ur Leukocyte Esterase (NEGATIVE) [facility] Results - Last 24 hrs: Microbiology 06/17/19 19:06 Stool Occult Blood ([facility]) - Final Stool / Feces NEGATIVE OCCULT BLOOD REFERENCE RANGE: NEGATIVE Med Orders - Current: Current Medications Aspirin (Halfprin) 81 mg PO BEDTIME [facility] Atorvastatin Calcium (Lipitor) 40 mg PO BEDTIME [facility] Clopidogrel Bisulfate (Plavix) 75 mg PO DAILY [facility] Last Admin: 06/18/19 08:07 Dose: 75 mg Levofloxacin/Dextrose 750 mg/ (Premix) 150 mls @ 100 mls/hr IV Q24H [facility] Last Admin: 06/18/19 00:07 Dose: 100 mls/hr Pantoprazole Sodium 40 mg/ (Sodium Chloride) 10 mls @ 300 mls/hr IV Q12H [facility] Last Admin: 06/18/19 12:15 Dose: 300 mls/hr Insulin Aspart (Novolog) 1.4 unit SUBCUT ASDIRECTED [facility] Methotrexate (Methotrexate) 15 mg PO WEEKLY [facility] Metoprolol Tartrate (Lopressor) 25 mg PO BEDTIME [facility] Isosorbide (Mononitrate 10 Mg) 1 each PO BEDTIME [facility] Sertraline HCl (Zoloft) 200 mg PO DAILY [facility] Last Admin: 06/18/19 08:07 Dose: 200 mg Discontinued Medications Aspirin (Halfprin) 81 mg PO ONETIME ONE Stop: 06/18/19 00:01 Last Admin: 06/18/19 00:27 Dose: 81 mg Atorvastatin Calcium (Lipitor) 40 mg PO ONETIME ONE Stop: 06/18/19 00:01 Last Admin: 06/18/19 00:27 Dose: 40 mg Sodium Chloride (Normal Saline) 1,000 mls @ 125 mls/hr IV STAT ONE Stop: 06/17/19 23:42 Last Admin: 06/17/19 17:05 Dose: 125 mls/hr Iopamidol (Isovue Multipack-370 (76%)) 100 ml IVPUSH ONETIME ONE Stop: 06/17/19 17:48 Last Admin: 06/17/19 17:48 Dose: 100 ml
[2019-06-18] MEDS ORDERED: atorvaSTATin 40 MG Tab PO SCH (21:00)
[2019-06-18] MEDS ORDERED: Aspirin 81 MG Tab.EC PO SCH (21:00)
[2019-06-18] MEDS ORDERED: Metoprolol Tartrate 25 MG Tab PO SCH (21:00)
== END 2019-06-18 17:00 | disposition home or self-care (01) ==
LOC: MW.ED 15:40 → MW.MS 19:27
PROVIDERS: ADMIT Internal Medicine; ATTEND Internal Medicine
DX: R55 Syncope and collapse (principal); R19.7 Diarrhea, unspecified; J18.9 Pneumonia, unspecified organism; I25.10 Atherosclerotic heart disease of native coronary artery without angina pectoris; E78.00 Pure hypercholesterolemia, unspecified; E10.21 Type 1 diabetes mellitus with diabetic nephropathy; M19.90 Unspecified osteoarthritis, unspecified site; L40.50 Arthropathic psoriasis, unspecified; E10.40 Type 1 diabetes mellitus with diabetic neuropathy, unspecified; F32.9 Major depressive disorder, single episode, unspecified; Z95.5 Presence of coronary angioplasty implant and graft; Z91.048 Other nonmedicinal substance allergy status; Z88.0 Allergy status to penicillin; Z87.891 Personal history of nicotine dependence
CPT/HCPCS: 36415; 70450; 71045; 71250; 74177; 80048; 80053; 81003; 82272; 82962; 84484; 85025; A9270; C9113; J1956; J7030; J7050; Q9967; 87328; 87329; 96365; 96375; 96376; 99283; G0378

== ENCOUNTER 2021-09-23 10:13 | Emergency (ER) | payer OTHER, MEDICARE ==
[2021-09-23] MEDS ORDERED: Sodium Chloride 0.9% 1,000 ML IV ONE (10:47)
[2021-09-23 11:18] LABS: CORONAVIRUS COVID-19 NAA POSITIVE (NEGATIVE); INFLUENZA A NAA NEGATIVE (NEGATIVE); INFLUENZA B NAA NEGATIVE (NEGATIVE)
[2021-09-23 12:29] LABS: BLOOD UREA NITROGEN,BUN 18 mg/dL (7.0-18.0); CARBON DIOXIDE,CO2 26.4 mmol/L (21.0-32.0); CHLORIDE,CL 101 mmol/L (98-107); GLUCOSE RANDOM 116 mg/dL (74-106); POTASSIUM,K 4.7 mmol/L (3.5-5.1); SODIUM,NA 134 mmol/L (136-148)
== END 2021-09-23 13:00 | disposition home or self-care (01) ==
LOC: MW.ED 10:13
DX: U07.1 COVID-19 (principal); E78.00 Pure hypercholesterolemia, unspecified; I25.2 Old myocardial infarction; I10 Essential (primary) hypertension; M19.90 Unspecified osteoarthritis, unspecified site; E10.40 Type 1 diabetes mellitus with diabetic neuropathy, unspecified; Z88.0 Allergy status to penicillin; Z91.048 Other nonmedicinal substance allergy status; Z79.899 Other long term (current) drug therapy; Z79.82 Long term (current) use of aspirin; Z79.4 Long term (current) use of insulin
CPT/HCPCS: 0240U; 36415; 71045; 80053; 85025; 99285; J7030; 99282